=== PATIENT | female | born 1930 | race American Indian/Alaskan Native ===

== ENCOUNTER 2016-08-05 10:39 | Outpatient (CLI) | payer MEDICARE ==
[2016-08-05 11:00] LABS: Basophils % (Auto) 0.8 % (0.0-1.8); Eosinophils % (Auto) 6.2 % (0.0-4.3); Hematocrit 32.2 % (30.3-42.9); Hemoglobin 10.6 gm/dl (10.1-14.3); Mean Corpuscular HGB Conc 33 % (30-34); Mean Corpuscular Hemoglobin 29 pg (28-32); Mean Corpuscular Volume 88 fl (79-97); Platelet Count 246 K/mm3 (140-440); Red Blood Count 3.67 M/mm3 (3.65-5.03); Red Cell Distribution Width 14.2 % (13.2-15.2)
[2016-08-05 12:29] LABS: Albumin 3.8 g/dL (3.9-5); BUN/Creatinine Ratio 13.33; Calcium 9.8 mg/dL (8.4-10.2); Chloride 101.1 mmol/L (98-107); Phosphorous 2.9 mg/dL (2.5-4.5); Potassium 4.4 mmol/L (3.6-5.0)
[2016-08-07 21:48] LABS: Albumin 3.5 g/dL (3.8-4.8); Gamma Globulin 1.2 g/dL (0.8-1.7)
== END 2016-08-05 10:40 | disposition home or self-care (01) ==
LOC: LAB 10:39
PROVIDERS: ATTEND Internal Medicine Nephrology
DX: C18.9 Malignant neoplasm of colon, unspecified (principal); I10 Essential (primary) hypertension; E78.5 Hyperlipidemia, unspecified; E83.52 Hypercalcemia; R94.4 Abnormal results of kidney function studies
CPT/HCPCS: 36415; 80048; 80074; 82040; 84100; 84165; 85025

== ENCOUNTER 2016-12-16 09:36 | Outpatient (CLI) | payer MEDICARE ==
[2016-12-16 10:00] LABS: Basophils % (Auto) 0.6 % (0.0-1.8); Eosinophils % (Auto) 2.6 % (0.0-4.3); Hematocrit 33.1 % (30.3-42.9); Hemoglobin 10.7 gm/dl (10.1-14.3); Mean Corpuscular HGB Conc 32 % (30-34); Mean Corpuscular Hemoglobin 28 pg (28-32); Mean Corpuscular Volume 86 fl (79-97); Red Blood Count 3.84 M/mm3 (3.65-5.03)
[2016-12-16 10:13] LABS: Platelet Count 240 K/mm3 (140-440)
[2016-12-16 10:26] LABS: Albumin 4.1 g/dL (3.9-5); BUN/Creatinine Ratio 21.66; Calcium 9.8 mg/dL (8.4-10.2); Chloride 98.3 mmol/L (98-107); Phosphorous 2.9 mg/dL (2.5-4.5); Potassium 4.3 mmol/L (3.6-5.0)
[2016-12-18 21:54] LABS: Albumin 3.9 g/dL (3.8-4.8); Gamma Globulin 1.4 g/dL (0.8-1.7)
== END 2016-12-16 09:37 | disposition home or self-care (01) ==
LOC: LAB 09:36
PROVIDERS: ATTEND Internal Medicine Nephrology
DX: C18.9 Malignant neoplasm of colon, unspecified (principal); I12.9 Hypertensive chronic kidney disease with stage 1 through stage 4 chronic kidney disease, or unspecified chronic kidney disease; N18.3 Chronic kidney disease, stage 3 (moderate); D63.1 Anemia in chronic kidney disease; E83.52 Hypercalcemia; E78.5 Hyperlipidemia, unspecified
CPT/HCPCS: 36415; 80048; 82040; 84100; 84165; 85025

== ENCOUNTER 2017-01-02 08:44 | Outpatient (CLI) | payer MEDICARE ==
[2017-01-02 09:48] LABS: Albumin 3.9 g/dL (3.9-5); Calcium 9.6 mg/dL (8.4-10.2); Chloride 103.3 mmol/L (98-107); Phosphorous 3.4 mg/dL (2.5-4.5); Potassium 4.9 mmol/L (3.6-5.0)
[2017-01-03 09:30] LABS: Bacteria,Urine 1+ /HPF (Negative); Bilirubin,Urine NEG (Negative); Blood,Urine NEG (Negative); Ketones,Urine NEG (Negative); Leukocyte Esterase,Urine SM (Negative); Mucus,Urine FEW /HPF; Nitrite,Urine NEG (Negative); Urobilinogen,Urine < 2.0 mg/dL (<2.0)
== END 2017-01-02 08:45 | disposition home or self-care (01) ==
LOC: LAB 08:44
PROVIDERS: ATTEND Internal Medicine Nephrology
DX: C18.9 Malignant neoplasm of colon, unspecified (principal); I12.9 Hypertensive chronic kidney disease with stage 1 through stage 4 chronic kidney disease, or unspecified chronic kidney disease; N18.3 Chronic kidney disease, stage 3 (moderate); E83.52 Hypercalcemia; D64.9 Anemia, unspecified; E78.5 Hyperlipidemia, unspecified
CPT/HCPCS: 36415; 80048; 81001; 82040; 84100; 89050

== ENCOUNTER 2017-05-07 09:22 | Outpatient (CLI) | payer MEDICARE ==
[2017-05-07 10:07] LABS: Basophils # (Auto) 0.1 K/mm3 (0.0-0.1); Basophils % (Auto) 0.9 % (0.0-1.8); Eosinophils # (Auto) 0.4 K/mm3 (0.0-0.4); Eosinophils % (Auto) 4.8 % (0.0-4.3); Hematocrit 32.3 % (30.3-42.9); Hemoglobin 10.8 gm/dl (10.1-14.3); Lymphocytes # (Auto) 2.4 K/mm3 (1.2-5.4); Lymphocytes % (Auto) 28.9 % (13.4-35.0); Mean Corpuscular HGB Conc 33 % (30-34); Mean Corpuscular Hemoglobin 28 pg (28-32); Mean Corpuscular Volume 83 fl (79-97); Monocytes # (Auto) 0.6 K/mm3 (0.0-0.8); Monocytes % (Auto) 7.2 % (0.0-7.3); Platelet Count 318 K/mm3 (140-440); Red Blood Count 3.88 M/mm3 (3.65-5.03); Red Cell Distribution Width 13.6 % (13.2-15.2)
[2017-05-07 10:18] LABS: Albumin 4.1 g/dL (3.9-5)
--- NOTE | 2017-05-07 10:58 | XRay Report ---
CHEST 2 VIEWS INDICATION: Chronic kidney disease. COMPARISON: None similar. FINDINGS: PA and lateral chest radiographs suggest overall normal heart size. Mild aortic knob calcifications. Unremarkable bernard. Somewhat heterogeneous left retrocardiac density suspicious for approximately 6 cm hiatal hernia. Right hemidiaphragm slightly elevated. Mild left lung base hazy density, possibly scarring or atelectasis. No large pleural effusions or CHF. Demineralized bones with multilevel thoracic spondylosis. Asymmetrically advanced left glenohumeral degenerative changes as well. Extensive abdominal aortic atherosclerotic calcifications incidentally noted. CONCLUSION: No acute significant chest process with various incidental findings, as above. Please correlate. Thank you for the opportunity to participate in this patient's care.
[2017-05-08 09:43] LABS: Bilirubin,Urine NEG (Negative); Blood,Urine NEG (Negative); Color,Urine Yellow (Yellow); Mucus,Urine FEW /HPF; Nitrite,Urine NEG (Negative); Urobilinogen,Urine < 2.0 mg/dL (<2.0)
== END 2017-05-07 09:23 | disposition home or self-care (01) ==
LOC: XRAY 09:22
PROVIDERS: ATTEND Internal Medicine Nephrology
DX: I12.9 Hypertensive chronic kidney disease with stage 1 through stage 4 chronic kidney disease, or unspecified chronic kidney disease (principal); N18.3 Chronic kidney disease, stage 3 (moderate); C18.9 Malignant neoplasm of colon, unspecified; E83.52 Hypercalcemia; E78.5 Hyperlipidemia, unspecified; D64.9 Anemia, unspecified; I70.0 Atherosclerosis of aorta; J98.6 Disorders of diaphragm; M47.894 Other spondylosis, thoracic region; M19.012 Primary osteoarthritis, left shoulder
CPT/HCPCS: 36415; 71046; 80048; 81001; 82040; 84100; 85025